=== PATIENT | female | born 1960 | race Caucasian/White ===

== ENCOUNTER 2016-10-07 12:14 | Inpatient (IN) | payer OTHER ==
[2016-10-07 13:11] VITALS: BMI 33.9
--- NOTE | 2016-10-07 15:08 | HP ---
Admission [facility] Chief Complaint: I was at [facility] detox for alcohol dependence and is now here for rehab for further tx. Allergies/Adverse Reactions: Allergies Allergy/AdvReac Type Severity Reaction Status Date / Time No Known Allergies Allergy Verified 10/07/16 14:59 History of Present Illness: Pt is a 56yr old female with a history of alcohol dependence was detoxed at [place] inpatient detox from 10/04-10/07 2016 and is here now for rehab tx. Exam Limitations: No Limitations - Ebola screening Have you traveled outside of the country in the last 21 days: No Have you had contact with anyone from an Ebola affected area: No Have you been sick,other than usual withdrawal symptoms: No Do you have a fever: No - Review of Systems Constitutional: Changes in sleep EENT: reports: No Symptoms Reported Respiratory: reports: No Symptoms reported Cardiac: reports: No Symptoms Reported GI: reports: Poor Fluid Intake : reports: No Symptoms Reported Musculoskeletal: reports: Back Pain Integumentary: reports: Flushing, Sweating Neuro: reports: Tremors Endocrine: reports: No Symptoms Reported Hematology: reports: No Symptoms Reported Psychiatric: reports: Judgement Intact, Mood/Affect Appropiate, Orientated x3, Agitated, Anxious Other Systems: Reviewed and Negative Patient History - Patient Medical History Hx Anemia: No Hx Asthma: Yes Hx Chronic Obstructive Pulmonary Disease (COPD): Yes Hx Cancer: No Hx Cardiac Disorders: No Hx Congestive Heart Failure: No Hx Hypertension: Yes Hx Hypercholesterolemia: No Hx Pacemaker: No HX Cerebrovascular Accident: No Hx Seizures: No Hx Dementia: No Hx Diabetes: No Hx Gastrointestinal Disorders: No Hx Liver Disease: No Hx Genitourinary Disorders: No Hx Sexually Transmitted Disorders: No Hx Renal Disease (ESRD): No Hx Thyroid Disease: No Hx Human Immunodeficiency Virus (HIV): Yes (diagnosed 1997) Hx Hepatitis C: Yes (treatment received <1yr ago) Hx Depression: Yes Hx Suicide Attempt: No (denies) Hx Bipolar Disorder: Yes Hx Schizophrenia: No - Patient Surgical History Past Surgical History: Yes Hx Appendectomy: Yes Hx Cholecystectomy: Yes Other Surgical History: h/o fracture upper left eyebrow and mandible >10yrs ago - PPD History Previous Implant?: Yes Documented Results: Positive w/o proof PPD to be Administered?: No - Reproductive History Patient is a Female of Child Bearing Age (11 -55 yrs old): No - Smoking Cessation Smoking history: Current every day smoker Have you smoked in the past 12 months: Yes Aproximately how many cigarettes per day: 10 Hx Chewing Tobacco Use: No Initiated information on smoking cessation: Yes 'Breaking Loose' booklet given: 10/07/16 - Substance & Tx. History Hx Alcohol Use: Yes Hx Substance Use: Yes Substance Use Type: Alcohol Hx Substance Use Treatment: Yes ([facility] 09/2016) Family Disease History - Family Disease History Family Disease History: CA: Grandparent, Mother (stage 4 lung CA), Other: Father (drug addict) Admission Physical Exam [facility] - Vital Signs Vital Signs: Vital Signs - 24 hr 10/07/16 12:58 Temperature 96 F L Pulse Rate 83 Respiratory 20 Rate Blood Pressure 126/76 - Physical General Appearance: Yes: Appropriately Dressed, Moderate Distress, Tremorous, Irritable, Sweating, Anxious HEENTM: Yes: Hearing grossly Normal, Normal Voice, Rhinorrhea Respiratory: Yes: Lungs Clear, Normal Breath Sounds, No Respiratory Distress Neck: Yes: No masses,lesions,Nodules Breast: Yes: Within Normal Limits Cardiology: Yes: Regular Rhythm, Regular Rate, S1, S2 Abdominal: Yes: Normal Bowel Sounds, Non Tender Genitourinary: Yes: Within Normal Limits Back: Yes: Normal Inspection Musculoskeletal: Yes: full range of Motion, Back pain Extremities: Yes: Normal Capillary Refill, Normal Inspection, Tremors Neurological: Yes: Fully Oriented, Alert, Normal Response Integumentary: Yes: Normal Color, Diaphoresis Lymphatic: Yes: Within Normal Limits - Diagnostic (1) Alcohol dependence in early, early partial, sustained full, or sustained partial remission Current Visit: Yes Status: Chronic (2) Hypertension Current Visit: Yes Status: Chronic Qualifiers: Hypertension type: essential hypertension Qualified Code(s): I10 - Essential (primary) hypertension (3) HIV (human immunodeficiency virus infection) Current Visit: Yes Status: Chronic Comment: pt has her own antiviral medication. (4) Asthma Current Visit: Yes Status: Chronic Qualifiers: Asthma severity: mild persistent Asthma complication type: uncomplicated Qualified Code(s): J45.30 - Mild persistent asthma, uncomplicated (5) Hepatitis C virus Current Visit: Yes Status: Inactive Qualifiers: Viral hepatitis chronicity: unspecified Hepatic coma status: without hepatic coma Qualified Code(s): B19.20 - Unspecified viral hepatitis C without hepatic coma Cleared for Admission [facility] - Detox or Rehab [facility] Level of Care: Medically Managed Claeared for Rehab Admission: Yes [facility] Breath Alcohol Content Breath Alcohol Content: 0 Urine Pregancy Test - Result Urine Test Results: Negative- NO Line Present Urine Drug Screen - Results Drug Screen Negative: No Urine Drug Screen Results: BZO-Benzodiazepines
[2016-10-07] MEDS ORDERED: MAGNESIUM HYDROX 2400MG/30ML ORAL SUSPENSION 30 ML CUP PO PRN (15:26)
[2016-10-07] MEDS ORDERED: MENTHOL/PHENOL 1 EACH UD MM PRN (15:26)
[2016-10-07] MEDS ORDERED: LOPERAMIDE HCL 2 MG CAPSULE PO PRN (15:26)
[2016-10-07] MEDS ORDERED: MAG HYDROX/AL HYDROX/SIMETH 30 ML UNIT-DOSE CUP PO PRN (15:26)
[2016-10-07] MEDS ORDERED: MAGNESIUM CITRATE 300 ML BOTTLE PO PRN (15:26)
[2016-10-07] MEDS ORDERED: diphenhydrAMINE HCL 50 MG CAPSULE PO PRN (15:26)
[2016-10-07] MEDS ORDERED: NICOTINE POLACRILEX 4 MG GUM BUC PRN (15:26)
[2016-10-07] MEDS ORDERED: ACETAMINOPHEN 325 MG TABLET (FP) PO PRN (15:26)
[2016-10-07] MEDS ORDERED: P-EPHED 60MG/TRIPROLIDI 2.5MG TABLET PO PRN (15:26)
[2016-10-07] MEDS ORDERED: guaiFENesin/D-METHORPHAN HB 10 ML UNIT-DOSE CUPS PO PRN (15:26)
[2016-10-07 16:22] LABS: MCH 30.9 pg (25.7-33.7); MCHC 33.5 g/dl (32.0-36.0); MEAN CELL VOLUME 92.2 fl (80-96); MEAN PLT VOLUME 9.3 fl (7.5-11.1); PLATELET COUNT 148 K/MM3 (134-434); WHITE BLOOD COUNT 8.4 K/mm3 (4.0-10.0)
[2016-10-07 17:31] LABS: ALBUMIN 3.9 g/dl (3.4-5.0); GLUCOSE,RANDOM 110 mg/dL (74-106); SGOT/AST 23 U/L (15-37)
[2016-10-07 17:37] LABS: ALK PHOS 84 U/L (45-117); ANION GAP 11 (8-16); BILIRUBIN,TOTAL 0.5 mg/dL (0.2-1.0); CALCIUM 9.5 mg/dL (8.5-10.1); CO2 24 mmol/L (21-32); CREATININE 0.7 mg/dL (0.55-1.02); SGPT/ALT 38 U/L (12-78); TOT PROT 7.3 g/dl (6.4-8.2)
[2016-10-07] MEDS: ALBUTEROL SO4 6.7 GM HFA INHALER IH PRN (18:07)
[2016-10-07] MEDS: hydrOXYzine PAMOATE 50 MG CAPSULE (FP) PO SCH (21:08)
[2016-10-07] MEDS: THIAMINE HCL 100 MG TABLET (FP) PO SCH (21:08)
[2016-10-07] MEDS: QUEtiapine FUMARATE 100 MG TABLET (FP) PO SCH (21:09)
[2016-10-07] MEDS: BUDESONIDE/FORMETEROL FUMARATE 160/4.5 mcg INHALER IH SCH (21:09)
[2016-10-07 21:23] LABS: URINE APPEARANCE SLCLOUDY; URINE BILIRUBIN NEGATIVE (NEGATIVE); URINE BLOOD NEGATIVE (NEGATIVE); URINE COLOR LTYELLOW; URINE GLUCOSE (UA) NEGATIVE (NEGATIVE); URINE KETONE NEGATIVE (NEGATIVE); URINE LEUK ESTERASE NEGATIVE (NEGATIVE); URINE NITRITE NEGATIVE (NEGATIVE); URINE PROTEIN NEGATIVE (NEGATIVE); URINE UROBILINOGEN NEGATIVE mg/dL (0.2-1.0)
[2016-10-07] MEDS: IBUPROFEN 400 MG TABLET (FP) PO PRN (22:00)
[2016-10-07] MEDS ORDERED: LITHIUM CARBONATE 300 MG CAPSULE (FP) PO ONE (22:00)
[2016-10-08] MEDS: LEVOTHYROXINE NA 25 MCG TABLET (FP) PO SCH (06:12)
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
[2016-10-08] MEDS ORDERED: PT OWN MED DRAWER 7, Y5N ONE ×2 (08:46→19:50)
[2016-10-08] MEDS ORDERED: PATIENT'S OWN MEDICATION (NON-FORMULARY) (Atenolol/Chlorthalidone [Atenolol-Chlorthalidone PO SCH (10:00)
[2016-10-08] MEDS: DOCUSATE SODIUM 100 MG CAPSULE (FP) PO SCH (10:13)
[2016-10-08] MEDS: BUDESONIDE/FORMETEROL FUMARATE 160/4.5 mcg INHALER IH SCH ×2 (10:13→21:04)
[2016-10-08] MEDS: PRENATAL VITAMINS W/ FOLIC ACID TABLET (FP) PO SCH (10:13)
[2016-10-08] MEDS: ASPIRIN 81 MG CHEWABLE TABLETS PO SCH (10:13)
[2016-10-08] MEDS: CHLORTHALIDONE 25 MG TABLET PO SCH (10:14)
[2016-10-08] MEDS: risperiDONE 1 MG TABLET (FP) PO SCH (10:14)
[2016-10-08] MEDS: PATIENT'S OWN MEDICATION (NON-FORMULARY) (Emtricitabine/Tenofov Alafenam [Descovy 200-25 M PO SCH (10:14)
[2016-10-08] MEDS: NICOTINE 21 MG/24 HOURS TOPICAL PATCH TD SCH (10:15)
[2016-10-08] MEDS: DOLUTEGRAVIR SODIUM 50 MG TABLET PO SCH (10:15)
[2016-10-08] MEDS: SULFAMETHOXAZOLE/TRIMETHOPRIM 400MG/80MG S.S. TABLET PO SCH (14:32)
[2016-10-08] MEDS: ALBUTEROL SO4 6.7 GM HFA INHALER IH PRN ×2 (14:34→19:20)
[2016-10-08] MEDS: IBUPROFEN 400 MG TABLET (FP) PO PRN (14:43)
[2016-10-08] MEDS ORDERED: CYCLOBENZAPRINE HCL 10 MG TABLET (FP) PO ONE (20:29)
[2016-10-08] MEDS: THIAMINE HCL 100 MG TABLET (FP) PO SCH (21:04)
[2016-10-08] MEDS: LITHIUM CARBONATE 300 MG CAPSULE (FP) PO SCH (21:04)
[2016-10-08] MEDS: QUEtiapine FUMARATE 100 MG TABLET (FP) PO SCH (21:05)
[2016-10-08] MEDS: hydrOXYzine PAMOATE 50 MG CAPSULE (FP) PO SCH (21:05)
[2016-10-09] MEDS: LEVOTHYROXINE NA 25 MCG TABLET (FP) PO SCH (06:21)
[2016-10-09] MEDS: DOLUTEGRAVIR SODIUM 50 MG TABLET PO SCH (10:03)
[2016-10-09] MEDS: BUDESONIDE/FORMETEROL FUMARATE 160/4.5 mcg INHALER IH SCH ×2 (10:03→21:03)
[2016-10-09] MEDS: PRENATAL VITAMINS W/ FOLIC ACID TABLET (FP) PO SCH (10:03)
[2016-10-09] MEDS: PATIENT'S OWN MEDICATION (NON-FORMULARY) (Emtricitabine/Tenofov Alafenam [Descovy 200-25 M PO SCH (10:03)
[2016-10-09] MEDS: DOCUSATE SODIUM 100 MG CAPSULE (FP) PO SCH (10:04)
[2016-10-09] MEDS: LITHIUM CARBONATE 300 MG CAPSULE (FP) PO SCH ×2 (10:04→21:04)
[2016-10-09] MEDS: ASPIRIN 81 MG CHEWABLE TABLETS PO SCH (10:04)
[2016-10-09] MEDS: risperiDONE 1 MG TABLET (FP) PO SCH (10:04)
[2016-10-09] MEDS: SULFAMETHOXAZOLE/TRIMETHOPRIM 400MG/80MG S.S. TABLET PO SCH (10:04)
[2016-10-09] MEDS: NICOTINE 21 MG/24 HOURS TOPICAL PATCH TD SCH (10:05)
[2016-10-09] MEDS: CHLORTHALIDONE 25 MG TABLET PO SCH (10:05)
[2016-10-09] MEDS: CYCLOBENZAPRINE HCL 10 MG TABLET (FP) PO PRN ×2 (10:07→16:05)
[2016-10-09] MEDS: IBUPROFEN 400 MG TABLET (FP) PO PRN (11:23)
[2016-10-09] MEDS: LIDOCAINE 5% TOPICAL PATCH TP SCH (14:37)
[2016-10-09] MEDS: IBUPROFEN 600 MG TABLET (FP) PO PRN (17:39)
--- NOTE | 2016-10-09 20:03 | EKG ---
Test Reason : Blood Pressure : / mmHG Vent. Rate : 081 BPM Atrial Rate : 081 BPM P-R Int : 182 ms QRS Dur : 086 ms QT Int : 380 ms P-R-T Axes : 064 072 066 degrees QTc Int : 441 ms NORMAL SINUS RHYTHM NORMAL ECG NO PREVIOUS ECGS AVAILABLE Confirmed by MENDEZ SCOTT MD ([id number]) on 10/09/2016 8:02:20 PM Referred By: Confirmed By:MENDEZ SCOTT MD
[2016-10-09] MEDS: QUEtiapine FUMARATE 100 MG TABLET (FP) PO SCH (21:03)
[2016-10-09] MEDS: SUVOREXANT 10 MG TABLET PO PRN (21:03)
[2016-10-09] MEDS: hydrOXYzine PAMOATE 50 MG CAPSULE (FP) PO SCH (21:04)
[2016-10-09] MEDS: THIAMINE HCL 100 MG TABLET (FP) PO SCH (21:05)
[2016-10-09] MEDS: LIDOCAINE PATCH REMOVAL MC SCH (21:41)
[2016-10-10] MEDS: LEVOTHYROXINE NA 25 MCG TABLET (FP) PO SCH (06:15)
[2016-10-10] MEDS: risperiDONE 1 MG TABLET (FP) PO SCH (09:39)
[2016-10-10] MEDS: ASPIRIN 81 MG CHEWABLE TABLETS PO SCH (09:39)
[2016-10-10] MEDS: BUDESONIDE/FORMETEROL FUMARATE 160/4.5 mcg INHALER IH SCH ×2 (09:39→22:00)
[2016-10-10] MEDS: PRENATAL VITAMINS W/ FOLIC ACID TABLET (FP) PO SCH (09:39)
[2016-10-10] MEDS: IBUPROFEN 600 MG TABLET (FP) PO PRN (09:39)
[2016-10-10] MEDS: DOCUSATE SODIUM 100 MG CAPSULE (FP) PO SCH (09:40)
[2016-10-10] MEDS: LIDOCAINE 5% TOPICAL PATCH TP SCH (09:40)
[2016-10-10] MEDS: SULFAMETHOXAZOLE/TRIMETHOPRIM 400MG/80MG S.S. TABLET PO SCH (09:40)
[2016-10-10] MEDS: LITHIUM CARBONATE 300 MG CAPSULE (FP) PO SCH ×2 (09:40→21:09)
[2016-10-10] MEDS: PATIENT'S OWN MEDICATION (NON-FORMULARY) (Emtricitabine/Tenofov Alafenam [Descovy 200-25 M PO SCH (09:40)
[2016-10-10] MEDS: DOLUTEGRAVIR SODIUM 50 MG TABLET PO SCH (09:41)
[2016-10-10] MEDS: NICOTINE 21 MG/24 HOURS TOPICAL PATCH TD SCH (09:41)
[2016-10-10] MEDS: hydrOXYzine PAMOATE 50 MG CAPSULE (FP) PO PRN (09:42)
[2016-10-10] MEDS: CYCLOBENZAPRINE HCL 10 MG TABLET (FP) PO PRN ×2 (09:44→18:01)
[2016-10-10] MEDS: CHLORTHALIDONE 25 MG TABLET PO SCH (11:00)
[2016-10-10] MEDS: hydrOXYzine PAMOATE 50 MG CAPSULE (FP) PO SCH (21:09)
[2016-10-10] MEDS: THIAMINE HCL 100 MG TABLET (FP) PO SCH (21:09)
[2016-10-10] MEDS: SUVOREXANT 10 MG TABLET PO PRN (22:00)
[2016-10-10] MEDS: QUEtiapine FUMARATE 100 MG TABLET (FP) PO SCH (22:18)
[2016-10-10] MEDS: LIDOCAINE PATCH REMOVAL MC SCH (23:17)
[2016-10-11] MEDS: LEVOTHYROXINE NA 25 MCG TABLET (FP) PO SCH (06:11)
[2016-10-11] MEDS: CYCLOBENZAPRINE HCL 10 MG TABLET (FP) PO PRN ×4 (06:11→21:35)
[2016-10-11] MEDS: IBUPROFEN 600 MG TABLET (FP) PO PRN (06:11)
[2016-10-11] MEDS: hydrOXYzine PAMOATE 50 MG CAPSULE (FP) PO PRN ×2 (10:07→15:28)
[2016-10-11] MEDS: ASPIRIN 81 MG CHEWABLE TABLETS PO SCH (10:07)
[2016-10-11] MEDS: risperiDONE 1 MG TABLET (FP) PO SCH (10:08)
[2016-10-11] MEDS: DOCUSATE SODIUM 100 MG CAPSULE (FP) PO SCH (10:08)
[2016-10-11] MEDS: PRENATAL VITAMINS W/ FOLIC ACID TABLET (FP) PO SCH (10:08)
[2016-10-11] MEDS: LITHIUM CARBONATE 300 MG CAPSULE (FP) PO SCH ×2 (10:08→20:06)
[2016-10-11] MEDS: PATIENT'S OWN MEDICATION (NON-FORMULARY) (Emtricitabine/Tenofov Alafenam [Descovy 200-25 M PO SCH (10:10)
[2016-10-11] MEDS: DOLUTEGRAVIR SODIUM 50 MG TABLET PO SCH (10:10)
[2016-10-11] MEDS: SULFAMETHOXAZOLE/TRIMETHOPRIM 400MG/80MG S.S. TABLET PO SCH (10:10)
[2016-10-11] MEDS: CHLORTHALIDONE 25 MG TABLET PO SCH (10:11)
[2016-10-11] MEDS: NICOTINE 21 MG/24 HOURS TOPICAL PATCH TD SCH (10:11)
[2016-10-11] MEDS: LIDOCAINE 5% TOPICAL PATCH TP SCH (10:11)
[2016-10-11] MEDS: BUDESONIDE/FORMETEROL FUMARATE 160/4.5 mcg INHALER IH SCH ×2 (10:11→21:33)
[2016-10-11] MEDS: ALBUTEROL SO4 6.7 GM HFA INHALER IH PRN (12:05)
--- NOTE | 2016-10-11 12:46 | PN ---
S Progress Note Note: initial glucose is 110,fasting blood glucose in am,allow patient to have a pitcher of water
[2016-10-11] MEDS: QUEtiapine FUMARATE 100 MG TABLET (FP) PO SCH (20:07)
[2016-10-11] MEDS: SUVOREXANT 10 MG TABLET PO PRN (20:08)
[2016-10-11] MEDS: hydrOXYzine PAMOATE 50 MG CAPSULE (FP) PO SCH (21:33)
[2016-10-11] MEDS: THIAMINE HCL 100 MG TABLET (FP) PO SCH (21:33)
[2016-10-11] MEDS: LIDOCAINE PATCH REMOVAL MC SCH (21:41)
[2016-10-12] MEDS: LEVOTHYROXINE NA 25 MCG TABLET (FP) PO SCH (06:08)
[2016-10-12] MEDS ORDERED: PT OWN MED DRAWER 7, Y5N ONE ×3 (09:00→21:51)
[2016-10-12] MEDS: ASPIRIN 81 MG CHEWABLE TABLETS PO SCH (10:01)
[2016-10-12] MEDS: DOCUSATE SODIUM 100 MG CAPSULE (FP) PO SCH (10:01)
[2016-10-12] MEDS: LITHIUM CARBONATE 300 MG CAPSULE (FP) PO SCH ×2 (10:01→20:13)
[2016-10-12] MEDS: risperiDONE 1 MG TABLET (FP) PO SCH (10:01)
[2016-10-12] MEDS: PRENATAL VITAMINS W/ FOLIC ACID TABLET (FP) PO SCH (10:01)
[2016-10-12] MEDS: LIDOCAINE 5% TOPICAL PATCH TP SCH (10:01)
[2016-10-12] MEDS: CHLORTHALIDONE 25 MG TABLET PO SCH (10:02)
[2016-10-12] MEDS: PATIENT'S OWN MEDICATION (NON-FORMULARY) (Emtricitabine/Tenofov Alafenam [Descovy 200-25 M PO SCH (10:02)
[2016-10-12] MEDS: NICOTINE 21 MG/24 HOURS TOPICAL PATCH TD SCH (10:03)
[2016-10-12] MEDS: SULFAMETHOXAZOLE/TRIMETHOPRIM 400MG/80MG S.S. TABLET PO SCH (10:03)
[2016-10-12] MEDS: DOLUTEGRAVIR SODIUM 50 MG TABLET PO SCH (10:04)
[2016-10-12] MEDS: hydrOXYzine PAMOATE 50 MG CAPSULE (FP) PO PRN ×2 (10:06→14:55)
[2016-10-12] MEDS: CYCLOBENZAPRINE HCL 10 MG TABLET (FP) PO PRN ×2 (10:06→14:55)
[2016-10-12] MEDS: IBUPROFEN 600 MG TABLET (FP) PO PRN ×2 (10:06→16:15)
[2016-10-12] MEDS: BUDESONIDE/FORMETEROL FUMARATE 160/4.5 mcg INHALER IH SCH ×2 (10:07→21:43)
[2016-10-12] MEDS: ALBUTEROL SO4 6.7 GM HFA INHALER IH PRN (18:00)
[2016-10-12] MEDS: QUEtiapine FUMARATE 100 MG TABLET (FP) PO SCH (20:13)
[2016-10-12] MEDS: SUVOREXANT 10 MG TABLET PO PRN (20:13)
[2016-10-12] MEDS: LIDOCAINE PATCH REMOVAL MC SCH (21:42)
[2016-10-12] MEDS: THIAMINE HCL 100 MG TABLET (FP) PO SCH (21:42)
[2016-10-12] MEDS: hydrOXYzine PAMOATE 50 MG CAPSULE (FP) PO SCH (21:42)
[2016-10-13] MEDS: hydrOXYzine PAMOATE 50 MG CAPSULE (FP) PO PRN ×2 (03:17→09:44)
[2016-10-13] MEDS: LEVOTHYROXINE NA 25 MCG TABLET (FP) PO SCH (06:06)
[2016-10-13] MEDS ORDERED: PT OWN MED DRAWER 7, Y5N ONE (08:39)
[2016-10-13] MEDS: risperiDONE 1 MG TABLET (FP) PO SCH (09:42)
[2016-10-13] MEDS: PRENATAL VITAMINS W/ FOLIC ACID TABLET (FP) PO SCH (09:42)
[2016-10-13] MEDS: CHLORTHALIDONE 25 MG TABLET PO SCH (09:43)
[2016-10-13] MEDS: PATIENT'S OWN MEDICATION (NON-FORMULARY) (Emtricitabine/Tenofov Alafenam [Descovy 200-25 M PO SCH (09:43)
[2016-10-13] MEDS: DOLUTEGRAVIR SODIUM 50 MG TABLET PO SCH (09:43)
[2016-10-13] MEDS: SULFAMETHOXAZOLE/TRIMETHOPRIM 400MG/80MG S.S. TABLET PO SCH (09:43)
[2016-10-13] MEDS: IBUPROFEN 600 MG TABLET (FP) PO PRN ×2 (09:45→21:42)
[2016-10-13] MEDS: CYCLOBENZAPRINE HCL 10 MG TABLET (FP) PO PRN ×3 (09:45→23:52)
[2016-10-13] MEDS: LIDOCAINE 5% TOPICAL PATCH TP SCH (09:46)
[2016-10-13] MEDS: NICOTINE 21 MG/24 HOURS TOPICAL PATCH TD SCH (09:46)
[2016-10-13] MEDS: ASPIRIN 81 MG CHEWABLE TABLETS PO SCH (09:50)
[2016-10-13] MEDS: LITHIUM CARBONATE 300 MG CAPSULE (FP) PO SCH ×2 (09:50→20:11)
[2016-10-13] MEDS: DOCUSATE SODIUM 100 MG CAPSULE (FP) PO SCH (09:50)
[2016-10-13] MEDS: BUDESONIDE/FORMETEROL FUMARATE 160/4.5 mcg INHALER IH SCH ×2 (10:18→21:57)
[2016-10-13] MEDS: QUEtiapine FUMARATE 100 MG TABLET (FP) PO SCH (20:12)
[2016-10-13] MEDS: SUVOREXANT 10 MG TABLET PO PRN (20:13)
[2016-10-13] MEDS: LIDOCAINE PATCH REMOVAL MC SCH (21:57)
[2016-10-13] MEDS: THIAMINE HCL 100 MG TABLET (FP) PO SCH (21:58)
[2016-10-13] MEDS: hydrOXYzine PAMOATE 50 MG CAPSULE (FP) PO SCH (21:58)
[2016-10-14] MEDS: hydrOXYzine PAMOATE 50 MG CAPSULE (FP) PO PRN ×2 (03:08→15:00)
[2016-10-14] MEDS: LEVOTHYROXINE NA 25 MCG TABLET (FP) PO SCH (06:08)
[2016-10-14] MEDS ORDERED: PT OWN MED DRAWER 7, Y5N ONE (08:41)
[2016-10-14] MEDS: BUDESONIDE/FORMETEROL FUMARATE 160/4.5 mcg INHALER IH SCH ×2 (10:07→21:22)
[2016-10-14] MEDS: risperiDONE 1 MG TABLET (FP) PO SCH (10:08)
[2016-10-14] MEDS: CYCLOBENZAPRINE HCL 10 MG TABLET (FP) PO PRN ×2 (10:08→21:22)
[2016-10-14] MEDS: DOCUSATE SODIUM 100 MG CAPSULE (FP) PO SCH (10:08)
[2016-10-14] MEDS: LITHIUM CARBONATE 300 MG CAPSULE (FP) PO SCH ×2 (10:08→20:06)
[2016-10-14] MEDS: PRENATAL VITAMINS W/ FOLIC ACID TABLET (FP) PO SCH (10:08)
[2016-10-14] MEDS: LIDOCAINE 5% TOPICAL PATCH TP SCH (10:08)
[2016-10-14] MEDS: NICOTINE 21 MG/24 HOURS TOPICAL PATCH TD SCH (10:08)
[2016-10-14] MEDS: ASPIRIN 81 MG CHEWABLE TABLETS PO SCH (10:08)
[2016-10-14] MEDS: PATIENT'S OWN MEDICATION (NON-FORMULARY) (Emtricitabine/Tenofov Alafenam [Descovy 200-25 M PO SCH (10:09)
[2016-10-14] MEDS: SULFAMETHOXAZOLE/TRIMETHOPRIM 400MG/80MG S.S. TABLET PO SCH (10:09)
[2016-10-14] MEDS: DOLUTEGRAVIR SODIUM 50 MG TABLET PO SCH (10:09)
[2016-10-14] MEDS: CHLORTHALIDONE 25 MG TABLET PO SCH (10:09)
[2016-10-14] MEDS: IBUPROFEN 600 MG TABLET (FP) PO PRN ×2 (10:10→21:21)
[2016-10-14] MEDS: QUEtiapine FUMARATE 100 MG TABLET (FP) PO SCH (20:06)
[2016-10-14] MEDS: hydrOXYzine PAMOATE 50 MG CAPSULE (FP) PO SCH (21:22)
[2016-10-14] MEDS: LIDOCAINE PATCH REMOVAL MC SCH (21:22)
[2016-10-14] MEDS: THIAMINE HCL 100 MG TABLET (FP) PO SCH (21:22)
[2016-10-15] MEDS: hydrOXYzine PAMOATE 50 MG CAPSULE (FP) PO PRN ×4 (05:57→17:28)
[2016-10-15] MEDS: LEVOTHYROXINE NA 25 MCG TABLET (FP) PO SCH (06:01)
[2016-10-15] MEDS: IBUPROFEN 600 MG TABLET (FP) PO PRN ×2 (07:57→16:21)
[2016-10-15] MEDS: CYCLOBENZAPRINE HCL 10 MG TABLET (FP) PO PRN ×2 (07:57→16:21)
[2016-10-15] MEDS: LITHIUM CARBONATE 300 MG CAPSULE (FP) PO SCH ×2 (09:00→19:47)
[2016-10-15] MEDS: ASPIRIN 81 MG CHEWABLE TABLETS PO SCH (09:04)
[2016-10-15] MEDS: DOCUSATE SODIUM 100 MG CAPSULE (FP) PO SCH (09:04)
[2016-10-15] MEDS: risperiDONE 1 MG TABLET (FP) PO SCH (09:04)
[2016-10-15] MEDS: PATIENT'S OWN MEDICATION (NON-FORMULARY) (Emtricitabine/Tenofov Alafenam [Descovy 200-25 M PO SCH (09:05)
[2016-10-15] MEDS: SULFAMETHOXAZOLE/TRIMETHOPRIM 400MG/80MG S.S. TABLET PO SCH (09:05)
[2016-10-15] MEDS: DOLUTEGRAVIR SODIUM 50 MG TABLET PO SCH (09:05)
[2016-10-15] MEDS: CHLORTHALIDONE 25 MG TABLET PO SCH (09:06)
[2016-10-15] MEDS: NICOTINE 21 MG/24 HOURS TOPICAL PATCH TD SCH (09:09)
[2016-10-15] MEDS: PRENATAL VITAMINS W/ FOLIC ACID TABLET (FP) PO SCH (09:10)
[2016-10-15] MEDS: BUDESONIDE/FORMETEROL FUMARATE 160/4.5 mcg INHALER IH SCH (09:10)
[2016-10-15] MEDS: LIDOCAINE 5% TOPICAL PATCH TP SCH (09:10)
--- NOTE | 2016-10-15 12:28 | PN ---
[facility] Progress Note Note: patient responds well to Belsomra, no side-effects will r/n medications.
[2016-10-15] MEDS: QUEtiapine FUMARATE 100 MG TABLET (FP) PO SCH (19:47)
[2016-10-15] MEDS: hydrOXYzine PAMOATE 50 MG CAPSULE (FP) PO SCH (21:03)
[2016-10-15] MEDS: LIDOCAINE PATCH REMOVAL MC SCH (21:04)
[2016-10-15] MEDS: SUVOREXANT 10 MG TABLET PO SCH (21:04)
[2016-10-15] MEDS: THIAMINE HCL 100 MG TABLET (FP) PO SCH (21:04)
[2016-10-16] MEDS: hydrOXYzine PAMOATE 50 MG CAPSULE (FP) PO PRN ×2 (03:40→10:02)
[2016-10-16] MEDS: IBUPROFEN 600 MG TABLET (FP) PO PRN (06:04)
[2016-10-16] MEDS: CYCLOBENZAPRINE HCL 10 MG TABLET (FP) PO PRN ×2 (06:04→21:03)
[2016-10-16] MEDS: LEVOTHYROXINE NA 25 MCG TABLET (FP) PO SCH (07:00)
[2016-10-16] MEDS: risperiDONE 1 MG TABLET (FP) PO SCH (10:00)
[2016-10-16] MEDS: BUDESONIDE/FORMETEROL FUMARATE 160/4.5 mcg INHALER IH SCH ×3 (10:00→21:02)
[2016-10-16] MEDS: DOCUSATE SODIUM 100 MG CAPSULE (FP) PO SCH (10:00)
[2016-10-16] MEDS: SULFAMETHOXAZOLE/TRIMETHOPRIM 400MG/80MG S.S. TABLET PO SCH (10:00)
[2016-10-16] MEDS: DOLUTEGRAVIR SODIUM 50 MG TABLET PO SCH (10:00)
[2016-10-16] MEDS: ASPIRIN 81 MG CHEWABLE TABLETS PO SCH (10:00)
[2016-10-16] MEDS: LITHIUM CARBONATE 300 MG CAPSULE (FP) PO SCH ×2 (10:00→20:06)
[2016-10-16] MEDS: PATIENT'S OWN MEDICATION (NON-FORMULARY) (Emtricitabine/Tenofov Alafenam [Descovy 200-25 M PO SCH (10:00)
[2016-10-16] MEDS: CHLORTHALIDONE 25 MG TABLET PO SCH (10:00)
[2016-10-16] MEDS: PRENATAL VITAMINS W/ FOLIC ACID TABLET (FP) PO SCH (10:00)
[2016-10-16] MEDS: LIDOCAINE 5% TOPICAL PATCH TP SCH (10:01)
[2016-10-16] MEDS: NICOTINE 21 MG/24 HOURS TOPICAL PATCH TD SCH (10:01)
[2016-10-16] MEDS: QUEtiapine FUMARATE 100 MG TABLET (FP) PO SCH (20:06)
[2016-10-16] MEDS: hydrOXYzine PAMOATE 50 MG CAPSULE (FP) PO SCH (21:02)
[2016-10-16] MEDS: THIAMINE HCL 100 MG TABLET (FP) PO SCH (21:02)
[2016-10-16] MEDS: SUVOREXANT 10 MG TABLET PO SCH (21:03)
[2016-10-16] MEDS: LIDOCAINE PATCH REMOVAL MC SCH (21:04)
[2016-10-17] MEDS: hydrOXYzine PAMOATE 50 MG CAPSULE (FP) PO PRN ×2 (06:05→14:32)
[2016-10-17] MEDS: LEVOTHYROXINE NA 25 MCG TABLET (FP) PO SCH (06:05)
[2016-10-17] MEDS: LITHIUM CARBONATE 300 MG CAPSULE (FP) PO SCH ×2 (09:58→21:13)
[2016-10-17] MEDS: ASPIRIN 81 MG CHEWABLE TABLETS PO SCH (09:58)
[2016-10-17] MEDS: PATIENT'S OWN MEDICATION (NON-FORMULARY) (Emtricitabine/Tenofov Alafenam [Descovy 200-25 M PO SCH (10:00)
[2016-10-17] MEDS: CHLORTHALIDONE 25 MG TABLET PO SCH (10:00)
[2016-10-17] MEDS: DOCUSATE SODIUM 100 MG CAPSULE (FP) PO SCH (10:00)
[2016-10-17] MEDS: NICOTINE 21 MG/24 HOURS TOPICAL PATCH TD SCH (10:01)
[2016-10-17] MEDS: PRENATAL VITAMINS W/ FOLIC ACID TABLET (FP) PO SCH (10:01)
[2016-10-17] MEDS: risperiDONE 1 MG TABLET (FP) PO SCH (10:01)
[2016-10-17] MEDS: CYCLOBENZAPRINE HCL 10 MG TABLET (FP) PO PRN ×2 (10:01→14:58)
[2016-10-17] MEDS: LIDOCAINE 5% TOPICAL PATCH TP SCH (10:01)
[2016-10-17] MEDS: IBUPROFEN 600 MG TABLET (FP) PO PRN ×2 (10:02→21:13)
[2016-10-17] MEDS: DOLUTEGRAVIR SODIUM 50 MG TABLET PO SCH (10:02)
[2016-10-17] MEDS: BUDESONIDE/FORMETEROL FUMARATE 160/4.5 mcg INHALER IH SCH ×2 (10:02→21:12)
[2016-10-17] MEDS: SULFAMETHOXAZOLE/TRIMETHOPRIM 400MG/80MG S.S. TABLET PO SCH (10:26)
[2016-10-17 17:15] LABS: URINE APPEARANCE SLCLOUDY; URINE BILIRUBIN NEGATIVE (NEGATIVE); URINE BLOOD NEGATIVE (NEGATIVE); URINE COLOR YELLOW; URINE GLUCOSE (UA) NEGATIVE (NEGATIVE); URINE KETONE NEGATIVE (NEGATIVE); URINE LEUK ESTERASE TRACE (NEGATIVE); URINE NITRITE NEGATIVE (NEGATIVE); URINE PROTEIN NEGATIVE (NEGATIVE); URINE UROBILINOGEN NEGATIVE mg/dL (0.2-1.0)
[2016-10-17 17:19] LABS: URINE BACTERIA RARE /hpf (NONE SEEN); URINE RBC <1 /hpf (0-3); URINE WBC 5 /hpf (3-5)
[2016-10-17] MEDS: QUEtiapine FUMARATE 100 MG TABLET (FP) PO SCH (21:12)
[2016-10-17] MEDS: hydrOXYzine PAMOATE 50 MG CAPSULE (FP) PO SCH (21:12)
[2016-10-17] MEDS: SUVOREXANT 10 MG TABLET PO SCH (21:13)
[2016-10-17] MEDS: THIAMINE HCL 100 MG TABLET (FP) PO SCH (21:15)
[2016-10-17] MEDS: LIDOCAINE PATCH REMOVAL MC SCH (21:16)
[2016-10-18] MEDS: hydrOXYzine PAMOATE 50 MG CAPSULE (FP) PO PRN ×3 (05:52→13:58)
[2016-10-18] MEDS: LEVOTHYROXINE NA 25 MCG TABLET (FP) PO SCH (06:06)
[2016-10-18] MEDS: risperiDONE 1 MG TABLET (FP) PO SCH (09:45)
[2016-10-18] MEDS: IBUPROFEN 600 MG TABLET (FP) PO PRN ×2 (09:45→21:06)
[2016-10-18] MEDS: BUDESONIDE/FORMETEROL FUMARATE 160/4.5 mcg INHALER IH SCH ×2 (09:45→21:04)
[2016-10-18] MEDS: CHLORTHALIDONE 25 MG TABLET PO SCH (09:46)
[2016-10-18] MEDS: ASPIRIN 81 MG CHEWABLE TABLETS PO SCH (09:46)
[2016-10-18] MEDS: SULFAMETHOXAZOLE/TRIMETHOPRIM 400MG/80MG S.S. TABLET PO SCH (09:46)
[2016-10-18] MEDS: DOCUSATE SODIUM 100 MG CAPSULE (FP) PO SCH (09:46)
[2016-10-18] MEDS: CYCLOBENZAPRINE HCL 10 MG TABLET (FP) PO PRN ×2 (09:46→21:06)
[2016-10-18] MEDS: PRENATAL VITAMINS W/ FOLIC ACID TABLET (FP) PO SCH (09:47)
[2016-10-18] MEDS: PATIENT'S OWN MEDICATION (NON-FORMULARY) (Emtricitabine/Tenofov Alafenam [Descovy 200-25 M PO SCH (09:47)
[2016-10-18] MEDS: NICOTINE 21 MG/24 HOURS TOPICAL PATCH TD SCH (09:47)
[2016-10-18] MEDS: LIDOCAINE 5% TOPICAL PATCH TP SCH (09:47)
[2016-10-18] MEDS: DOLUTEGRAVIR SODIUM 50 MG TABLET PO SCH (09:50)
[2016-10-18] MEDS: LITHIUM CARBONATE 300 MG CAPSULE (FP) PO SCH ×2 (10:23→20:00)
--- NOTE | 2016-10-18 13:32 | PN ---
[facility] Progress Note Note: URINARY IN CONTINENCE,UA IS NEGATIVE,PLACE ON DITROPAN 5 MG PO BID
[2016-10-18] MEDS: OXYBUTYNIN CHLORIDE 5 MG TABLET PO SCH ×2 (14:25→21:06)
[2016-10-18] MEDS: QUEtiapine FUMARATE 100 MG TABLET (FP) PO SCH (20:00)
[2016-10-18] MEDS: SUVOREXANT 10 MG TABLET PO SCH (21:05)
[2016-10-18] MEDS: hydrOXYzine PAMOATE 50 MG CAPSULE (FP) PO SCH (21:05)
[2016-10-18] MEDS: LIDOCAINE PATCH REMOVAL MC SCH (21:07)
[2016-10-18] MEDS: THIAMINE HCL 100 MG TABLET (FP) PO SCH (21:08)
[2016-10-19] MEDS: LEVOTHYROXINE NA 25 MCG TABLET (FP) PO SCH (06:38)
[2016-10-19] MEDS: BUDESONIDE/FORMETEROL FUMARATE 160/4.5 mcg INHALER IH SCH ×2 (09:42→21:07)
[2016-10-19] MEDS: LITHIUM CARBONATE 300 MG CAPSULE (FP) PO SCH ×2 (09:42→21:04)
[2016-10-19] MEDS: DOLUTEGRAVIR SODIUM 50 MG TABLET PO SCH (09:42)
[2016-10-19] MEDS: OXYBUTYNIN CHLORIDE 5 MG TABLET PO SCH ×2 (09:42→21:05)
[2016-10-19] MEDS: LIDOCAINE 5% TOPICAL PATCH TP SCH (09:42)
[2016-10-19] MEDS: DOCUSATE SODIUM 100 MG CAPSULE (FP) PO SCH (09:43)
[2016-10-19] MEDS: PRENATAL VITAMINS W/ FOLIC ACID TABLET (FP) PO SCH (09:43)
[2016-10-19] MEDS: ASPIRIN 81 MG CHEWABLE TABLETS PO SCH (09:43)
[2016-10-19] MEDS: SULFAMETHOXAZOLE/TRIMETHOPRIM 400MG/80MG S.S. TABLET PO SCH (09:43)
[2016-10-19] MEDS: risperiDONE 1 MG TABLET (FP) PO SCH (09:43)
[2016-10-19] MEDS: PATIENT'S OWN MEDICATION (NON-FORMULARY) (Emtricitabine/Tenofov Alafenam [Descovy 200-25 M PO SCH (09:43)
[2016-10-19] MEDS: NICOTINE 21 MG/24 HOURS TOPICAL PATCH TD SCH (09:43)
[2016-10-19] MEDS: CHLORTHALIDONE 25 MG TABLET PO SCH (09:43)
[2016-10-19] MEDS: CYCLOBENZAPRINE HCL 10 MG TABLET (FP) PO PRN ×2 (09:44→17:33)
[2016-10-19] MEDS: IBUPROFEN 600 MG TABLET (FP) PO PRN ×2 (09:45→17:33)
[2016-10-19] MEDS: hydrOXYzine PAMOATE 50 MG CAPSULE (FP) PO PRN ×2 (09:45→13:59)
[2016-10-19] MEDS: SUVOREXANT 10 MG TABLET PO SCH (21:04)
[2016-10-19] MEDS: QUEtiapine FUMARATE 100 MG TABLET (FP) PO SCH (21:04)
[2016-10-19] MEDS: hydrOXYzine PAMOATE 50 MG CAPSULE (FP) PO SCH (21:05)
[2016-10-19] MEDS: THIAMINE HCL 100 MG TABLET (FP) PO SCH (21:05)
[2016-10-19] MEDS: LIDOCAINE PATCH REMOVAL MC SCH (23:09)
[2016-10-20] MEDS: LEVOTHYROXINE NA 25 MCG TABLET (FP) PO SCH (06:17)
[2016-10-20] MEDS: hydrOXYzine PAMOATE 50 MG CAPSULE (FP) PO PRN ×4 (06:18→17:20)
[2016-10-20] MEDS: PATIENT'S OWN MEDICATION (NON-FORMULARY) (Emtricitabine/Tenofov Alafenam [Descovy 200-25 M PO SCH (09:42)
[2016-10-20] MEDS: BUDESONIDE/FORMETEROL FUMARATE 160/4.5 mcg INHALER IH SCH ×2 (09:42→21:04)
[2016-10-20] MEDS: NICOTINE 21 MG/24 HOURS TOPICAL PATCH TD SCH (09:43)
[2016-10-20] MEDS: PRENATAL VITAMINS W/ FOLIC ACID TABLET (FP) PO SCH (09:43)
[2016-10-20] MEDS: LITHIUM CARBONATE 300 MG CAPSULE (FP) PO SCH ×2 (09:43→19:52)
[2016-10-20] MEDS: DOLUTEGRAVIR SODIUM 50 MG TABLET PO SCH (09:43)
[2016-10-20] MEDS: DOCUSATE SODIUM 100 MG CAPSULE (FP) PO SCH (09:43)
[2016-10-20] MEDS: SULFAMETHOXAZOLE/TRIMETHOPRIM 400MG/80MG S.S. TABLET PO SCH (09:43)
[2016-10-20] MEDS: ASPIRIN 81 MG CHEWABLE TABLETS PO SCH (09:43)
[2016-10-20] MEDS: risperiDONE 1 MG TABLET (FP) PO SCH (09:43)
[2016-10-20] MEDS: OXYBUTYNIN CHLORIDE 5 MG TABLET PO SCH ×2 (09:43→21:04)
[2016-10-20] MEDS: CHLORTHALIDONE 25 MG TABLET PO SCH (09:43)
[2016-10-20] MEDS: LIDOCAINE 5% TOPICAL PATCH TP SCH (09:44)
[2016-10-20] MEDS: IBUPROFEN 600 MG TABLET (FP) PO PRN ×2 (09:46→21:16)
[2016-10-20] MEDS: CYCLOBENZAPRINE HCL 10 MG TABLET (FP) PO PRN ×2 (09:46→21:16)
[2016-10-20] MEDS: QUEtiapine FUMARATE 100 MG TABLET (FP) PO SCH (19:52)
[2016-10-20] MEDS: hydrOXYzine PAMOATE 50 MG CAPSULE (FP) PO SCH (21:04)
[2016-10-20] MEDS: SUVOREXANT 10 MG TABLET PO SCH (21:04)
[2016-10-20] MEDS: THIAMINE HCL 100 MG TABLET (FP) PO SCH (21:04)
[2016-10-20] MEDS: LIDOCAINE PATCH REMOVAL MC SCH (21:05)
[2016-10-21] MEDS: LEVOTHYROXINE NA 25 MCG TABLET (FP) PO SCH (06:05)
[2016-10-21] MEDS: hydrOXYzine PAMOATE 50 MG CAPSULE (FP) PO PRN (06:06)
[2016-10-21 07:04] VITALS: BP 135/88; PULSE 81; TEMP 98.2
[2016-10-21] MEDS ORDERED: PT OWN MED DRAWER 7, Y5N ONE (08:38)
[2016-10-21] MEDS: ASPIRIN 81 MG CHEWABLE TABLETS PO SCH (09:00)
[2016-10-21] MEDS: DOCUSATE SODIUM 100 MG CAPSULE (FP) PO SCH (09:00)
[2016-10-21] MEDS: PRENATAL VITAMINS W/ FOLIC ACID TABLET (FP) PO SCH (09:00)
[2016-10-21] MEDS: risperiDONE 1 MG TABLET (FP) PO SCH (09:00)
[2016-10-21] MEDS: LITHIUM CARBONATE 300 MG CAPSULE (FP) PO SCH (09:00)
[2016-10-21] MEDS: CYCLOBENZAPRINE HCL 10 MG TABLET (FP) PO PRN (09:01)
[2016-10-21] MEDS: IBUPROFEN 600 MG TABLET (FP) PO PRN (09:01)
[2016-10-21] MEDS: PATIENT'S OWN MEDICATION (NON-FORMULARY) (Emtricitabine/Tenofov Alafenam [Descovy 200-25 M PO SCH (09:01)
[2016-10-21] MEDS: DOLUTEGRAVIR SODIUM 50 MG TABLET PO SCH (09:01)
[2016-10-21] MEDS: SULFAMETHOXAZOLE/TRIMETHOPRIM 400MG/80MG S.S. TABLET PO SCH (09:02)
[2016-10-21] MEDS: CHLORTHALIDONE 25 MG TABLET PO SCH (09:02)
[2016-10-21] MEDS: NICOTINE 21 MG/24 HOURS TOPICAL PATCH TD SCH (09:02)
[2016-10-21] MEDS: OXYBUTYNIN CHLORIDE 5 MG TABLET PO SCH (09:02)
[2016-10-21] MEDS: LIDOCAINE 5% TOPICAL PATCH TP SCH (09:02)
[2016-10-21] MEDS: BUDESONIDE/FORMETEROL FUMARATE 160/4.5 mcg INHALER IH SCH (09:03)
--- NOTE | 2016-10-21 10:00 | PN ---
Psychiatric Progress Note Vital Signs: Vital Signs Period Temp Pulse Resp BP Sys/Newell Pulse Ox Last 24 Hr 98.2 F 81 18-20 135/88 Date of Session: 10/21/16 Chief Complaint:: discharge vist HPI: Patient addressing alcohol,nicotine dependence comorbid Bipolar II disorder. ROS: Asthma/COPD, HIV+, HTN medically managed,treatment for Hep C. Current Medications: Active Medications Generic Name Dose Route Start Last Admin Trade Name Freq PRN Reason Stop Dose Admin Acetaminophen 650 mg 10/07/16 15:26 10/14/16 11:57 Tylenol - PO 650 mg Q4H PRN Administration PAIN Al Hydroxide/Mg Hydroxide 30 ml 10/07/16 15:26 Mylanta Oral Suspension - PO Q6H PRN DYSPEPSIA Albuterol Sulfate 2 puff 10/07/16 15:28 10/12/16 18:00 Ventolin Hfa Inhaler - IH 2 puff Q4H PRN Administration SHORT OF BREATH/WHEEZING Aspirin 81 mg 10/08/16 10:00 10/21/16 09:00 Asa - PO 81 mg DAILY JARVIS Administration Budesonide/Formoterol Fumarate 2 puff 10/07/16 22:00 10/21/16 09:03 Symbicort 160/4.5mcg - IH 2 puff BID JARVIS Administration Chlorthalidone 25 mg 10/08/16 10:00 10/21/16 09:02 Hygroton - PO 25 mg DAILY JARVIS Administration Cyclobenzaprine HCl 10 mg 10/09/16 07:22 10/21/16 09:01 Flexeril - PO 10 mg TID PRN Administration MUSCLE SPASMS Diphenhydramine HCl 50 mg 10/07/16 15:26 10/14/16 21:42 Benadryl - PO 50 mg HSMR1 PRN Administration INSOMNIA Docusate Sodium 200 mg 10/08/16 10:00 10/21/16 09:00 Colace - PO 200 mg DAILY JARVIS Administration Eucalyptus/Menthol/Phenol/Sorbitol 1 each 10/07/16 15:26 Cepastat Lozenge - MM Q4H PRN SORE THROAT Guaifenesin 10 ml 10/07/16 15:26 Robitussin Dm - PO Q6H PRN COUGH Hydroxyzine Pamoate 50 mg 10/07/16 15:26 10/21/16 06:06 Vistaril - PO 50 mg Q4H PRN Administration AGITATION Hydroxyzine Pamoate 100 mg 10/07/16 22:00 10/20/16 21:04 Vistaril - PO 100 mg HS JARVIS Administration Ibuprofen 600 mg 10/09/16 13:04 10/21/16 09:01 Motrin - PO 600 mg Q6H PRN Administration PAIN Levothyroxine Sodium 50 mcg 10/08/16 07:00 10/21/16 06:05 Synthroid - PO 50 mcg DAILY@0700 JARVIS Administration Lidocaine 1 patch 10/09/16 13:00 10/21/16 09:02 Lidoderm Patch - TP 1 patch DAILY JARVIS Administration [place] Carbonate 600 mg 10/11/16 10:00 10/21/16 09:00 Eskalith - PO 600 mg BID@1000,2000 JARVIS Administration Loperamide HCl 4 mg 10/07/16 15:26 Imodium - PO Q6H PRN DIARRHEA Magnesium Citrate 300 ml 10/07/16 15:26 Citroma - PO Q48H PRN CONSTIPATION Magnesium Hydroxide 30 ml 10/07/16 15:26 Milk Of Magnesia - PO DAILY PRN CONSTIPATION Miscellaneous 1 each 10/09/16 22:00 10/20/16 21:05 Lidoderm Patch Removal MC 1 each DAILY@2200 JARVIS Administration Nicotine 21 mg 10/08/16 10:00 10/21/16 09:02 Nicoderm Patch - TD Not Given DAILY JARVIS Nicotine Polacrilex 4 mg 10/07/16 15:26 Nicorette Gum - BUC Q2H PRN NICOTINE REPLACEMENT RX Non-Formulary Medication 1 each 10/08/16 10:00 10/21/16 09:01 Emtricitabine/Tenofov Alafenam [Descovy 200-25 Mg Tablet] PO 1 each DAILY JARVIS Administration Oxybutynin Chloride 5 mg 10/18/16 14:00 10/21/16 09:02 Ditropan - PO 5 mg BID JARVIS Administration Multivit/Folic Acid/Iron 1 tab 10/08/16 10:00 10/21/16 09:00 Vitamins (Sjr) - PO 1 tab DAILY JARVIS Administration Pseudoephedrine/Triprolidine 1 combo 10/07/16 15:26 Actifed - PO TID PRN NASAL CONGESTION Quetiapine Fumarate 100 mg 10/11/16 20:00 10/20/16 19:52 Seroquel - PO 100 mg HS@2000 JARVIS Administration Risperidone 1 mg 10/08/16 10:00 10/21/16 09:00 Risperdal - PO 1 mg DAILY JARVIS Administration Thiamine HCl 100 mg 10/07/16 22:00 10/20/16 21:04 Vitamin B1 - PO 100 mg HS JARVIS Administration Trimethoprim/Sulfamethoxazole 1 each 10/08/16 10:00 10/21/16 09:02 Bactrim Single Strength - PO 1 each DAILY JARVIS Administration Current Side Effect: No Lab tests ordered: No Lab tests reviewed: Yes Provider note:: Patient has completed today her treatment and met identified goals, will continue to address her issues at [facility] outpatient treatment program. She gained insights into her addiction, unedrstands the negative impact drining on her mahor life areas including physical and mental healst. Medications(lithium Risprdal) well tolerated, blood lithium level 0.6 () WNL, she will f/u at [facility], scripts provided, patient reports no side-effects, she is stable for discharge today. Total face to face time:: 15 Mental Status Exam - Mental Status Exam Alert and Oriented to: Time, Place, Person Cognitive Function: Good Patient Appearance: Well Groomed Mood: Hopeful Affect: Appropriate, Mood Congruent Patient Behavior: Appropriate, Cooperative Speech Pattern: Clear, Appropriate Voice Loudness: Normal Thought Process: Intact, Goal Oriented Thought Disorder: Not Present Hallucinations: Denies Suicidal Ideation: Denies Homicidal Ideation: Denies Insight/Judgement: Fair Sleep: Fair Appetite: Fair Muscle strength/Tone: Normal Gait/Station: Normal Psychiatric Treatment Plan - Problem List (1) Alcohol dependence Current Visit: Yes (2) Bipolar II disorder Current Visit: Yes (3) Nicotine dependence Current Visit: Yes (4) Asthma Current Visit: Yes Qualifiers: Asthma severity: mild persistent Asthma complication type: uncomplicated Qualified Code(s): J45.30 - Mild persistent asthma, uncomplicated (5) HIV (human immunodeficiency virus infection) Current Visit: Yes Comment: pt has her own antiviral medication. (6) Hypertension Current Visit: Yes Qualifiers: Hypertension type: essential hypertension Qualified Code(s): I10 - Essential (primary) hypertension
== END 2016-10-21 10:00 | disposition home or self-care (01) | DRG 772 ==
LOC: YASAS 12:14 → Y3W 15:19
PROVIDERS: ADMIT Psychiatry & Neurology Psychiatry; ATTEND Psychiatry & Neurology Psychiatry
PROC: HZ42ZZZ Group Counseling for Substance Abuse Treatment, Cognitive-Behavioral (ICD-10-PCS; principal; 2016-10-07)
DX: F10.20 Alcohol dependence, uncomplicated (principal); F17.210 Nicotine dependence, cigarettes, uncomplicated; F31.81 Bipolar II disorder; J45.30 Mild persistent asthma, uncomplicated; J44.9 Chronic obstructive pulmonary disease, unspecified; Z21 Asymptomatic human immunodeficiency virus [HIV] infection status; I10 Essential (primary) hypertension; R32 Unspecified urinary incontinence; B19.20 Unspecified viral hepatitis C without hepatic coma; Z59.0 Homelessness
CPT/HCPCS: 36415; 71020-TC; 80053; 80178; 81003; 81015; 82947; 85027; 86593; 93005; 93010; J2794

== ENCOUNTER 2024-01-01 17:38 | Inpatient (IN) | payer OTHER ==
[2024-01-01 20:43] VITALS: BMI 29.8
[2024-01-01] MEDS ORDERED: BENZONATATE 200 MG CAPSULE PO PRN (21:09)
[2024-01-01] MEDS ORDERED: guaiFENesin 600 MG TABLET.ER (FP) PO PRN (21:09)
[2024-01-01] MEDS ORDERED: MAGNESIUM HYDROX 2400MG/30ML ORAL SUSPENSION 30 ML CUP PO PRN (21:09)
[2024-01-01] MEDS ORDERED: IBUPROFEN 400 MG TABLET (FP) PO PRN (21:09)
[2024-01-01] MEDS ORDERED: POLYETHYLENE GLYCOL (HEALTHYLAX) 3350 17 GM PACKET PO PRN (21:09)
[2024-01-01] MEDS ORDERED: ACETAMINOPHEN 325 MG TABLET (FP) PO PRN (21:09)
[2024-01-01] MEDS ORDERED: NICOTINE POLACRILEX 2 MG LOZENGE BC PRN (21:09)
[2024-01-01] MEDS ORDERED: DICYCLOMINE HCL 10 MG CAPSULE PO PRN (21:09)
[2024-01-01] MEDS ORDERED: ONDANSETRON *ODT* 4 MG TABLET SL PRN (21:09)
[2024-01-01] MEDS ORDERED: NALOXONE (NYS OPIOID OVERDOSE PROGRAM) 4 MG/0.1 ML SPRAY NS PRN (21:09)
[2024-01-01] MEDS ORDERED: P-EPHED 60MG/TRIPROLIDI 2.5MG TABLET PO PRN (21:09)
[2024-01-01] MEDS ORDERED: MAG HYDROX/AL HYDROX/SIMETH 30 ML UNIT-DOSE CUP PO PRN (21:09)
[2024-01-01] MEDS ORDERED: LOPERAMIDE HCL 2 MG CAPSULE PO PRN (21:09)
[2024-01-01] MEDS ORDERED: BENZOCAINE/MENTHOL (CHLORASEPTIC ) LOZENGE MM PRN (21:09)
[2024-01-01] MEDS ORDERED: ALBUTEROL SO4 2.5/IPRATROPIUM 0.5 INH SOL 3 ML VIAL.NEB. NEB PRN (21:14)
[2024-01-01] MEDS: METHOCARBAMOL 500 MG TABLET PO PRN (22:59)
[2024-01-01] MEDS: THIAMINE 100 MG TABLET PO SCH (22:59)
[2024-01-01] MEDS: MELATONIN 5 MG TABLETS PO SCH (22:59)
[2024-01-01] MEDS: ALBUTEROL SO4 HFA INHALER IH PRN (23:00)
[2024-01-01] MEDS: hydrOXYzine PAMOATE 25 MG CAPSULE (FP) PO PRN (23:00)
[2024-01-02] MEDS: LEVOTHYROXINE NA 25 MCG TABLET (FP) PO SCH (06:05)
[2024-01-02] MEDS ORDERED: chlordiazePOXIDE HCL 25 MG CAPSULE PO PRN (09:57)
[2024-01-02] MEDS: PRENATAL VITAMINS W/ FOLIC ACID TABLET (FP) PO SCH (09:58)
[2024-01-02] MEDS ORDERED: FLUTICASONE FUROATE IH SCH (10:00)
[2024-01-02] MEDS: ASPIRIN 81 MG CHEWABLE TABLETS PO SCH (10:00)
[2024-01-02] MEDS ORDERED: PATIENT'S OWN MEDICATION (NON-FORMULARY) (Atenolol/Chlorthalidone [Atenolol-Chlorthalidone PO SCH (10:00)
[2024-01-02] MEDS: BICTEGRAV/EMTRICIT/TENOFOV (BIKTARVY) 50-200-25 MG TABLET PO SCH (10:00)
[2024-01-02] MEDS: CHLORTHALIDONE 25 MG TABLET PO SCH (11:18)
[2024-01-02] MEDS: SULFAMETHOXAZOLE/TRIMETHOPRIM 400MG/80MG S.S. TABLET PO SCH (11:19)
[2024-01-02] MEDS: ATENOLOL 50 MG TABLET (FP) PO SCH (11:19)
[2024-01-02] MEDS: chlordiazePOXIDE HCL 25 MG CAPSULE PO SCH (11:20)
[2024-01-02] MEDS: GABAPENTIN 300 MG CAPSULE PO SCH ×2 (11:20→21:49)
[2024-01-02] MEDS: BUDESONIDE/FORMETEROL FUMARATE 80/4.5 mcg INHALER IH SCH (11:23)
[2024-01-02 11:52] LABS: CHLORIDE 110 mmol/L (98-107); POTASSIUM 3.7 mmol/L (3.5-5.1); SODIUM 143 mmol/L (136-145)
[2024-01-02 11:55] LABS: ANION GAP 6 mmol/L (4-13); BLOOD UREA NITROGEN 11.5 mg/dL (7-18); CALCIUM 9.2 mg/dL (8.5-10.1); CO2 27 mmol/L (21-32); GLUCOSE,RANDOM 121 mg/dL (74-106); HEMATOCRIT 38.9 % (32.4-45.2); MCH 29.5 pg (25.7-33.7); MCHC 33.5 g/dl (32.0-36.0); MEAN CELL VOLUME 88.1 fl (80-96); MEAN PLT VOLUME 9.8 fl (7.5-11.1); PLATELET COUNT 128 10^3/uL (134-434); RBC 4.42 M/mm3 (3.60-5.2); RDW 14.9 % (11.6-15.6)
[2024-01-02 11:58] LABS: CREATININE 0.6 mg/dL (0.55-1.3); SGOT/AST 11 U/L (15-37); SGPT/ALT 20 U/L (13-61)
[2024-01-02 12:00] LABS: BILIRUBIN,TOTAL 0.2 mg/dL (0.2-1)
[2024-01-02 12:01] LABS: ALK PHOS 89 U/L (45-117)
[2024-01-02 12:08] LABS: WHITE BLOOD COUNT 1.5 K/mm3 (4.0-10.0)
[2024-01-02] MEDS: DOCUSATE SODIUM 100 MG CAPSULE (FP) PO SCH (21:49)
[2024-01-03] MEDS: BISMUTH SUBSALICYLATE 524 MG/30 ML PO PRN (22:20)
[2024-01-04] MEDS: chlordiazePOXIDE HCL 25 MG CAPSULE PO SCH (05:57)
[2024-01-04] MEDS: NICOTINE POLACRILEX 2 MG GUM BUC PRN (07:04)
[2024-01-04 08:07] LABS: HEMATOCRIT 42.8 % (32.4-45.2); HEMOGLOBIN 13.8 GM/dL (10.7-15.3); MCH 29.2 pg (25.7-33.7); MCHC 32.3 g/dl (32.0-36.0); MEAN CELL VOLUME 90.3 fl (80-96); MEAN PLT VOLUME 10.4 fl (7.5-11.1); PLATELET COUNT 138 10^3/uL (134-434); RBC 4.74 M/mm3 (3.60-5.2); RDW 14.9 % (11.6-15.6); WHITE BLOOD COUNT 2.7 K/mm3 (4.0-10.0)
[2024-01-04 09:26] LABS: ANISOCYTOSIS 0; HELMET CELLS 0; HOWELL-JOLLY BODIES 0; MACROCYTOSIS 0; OVALOCYTE 0; ROULEAU 0; SICKELED CELLS 0; TARGET CELLS 0; TEAR DROP CELLS 0; TOXIC GRANULATION 0
[2024-01-04] MEDS: CLOTRIMAZOLE 1% CREAM TP SCH (11:25)
[2024-01-05] MEDS ORDERED: chlordiazePOXIDE HCL 10 MG CAPSULE PO PRN
[2024-01-05] MEDS: chlordiazePOXIDE HCL 10 MG CAPSULE PO SCH (05:45)
[2024-01-05] MEDS: IBUPROFEN 600 MG TABLET (FP) PO PRN (11:31)
[2024-01-05] MEDS: SELENIUM SULFIDE 2.25% 180 ML SHAMPOO TP SCH (14:19)
[2024-01-06] MEDS: chlordiazePOXIDE HCL 10 MG CAPSULE PO SCH (05:32)
[2024-01-06] MEDS: NALOXONE (NYS OPIOID OVERDOSE PROGRAM) 4 MG/0.1 ML SPRAY NS SCH (10:50)
[2024-01-06] MEDS: SUVOREXANT 10 MG TABLET PO PRN (21:51)
[2024-01-07] MEDS: chlordiazePOXIDE HCL 10 MG CAPSULE PO ONE (05:50)
[2024-01-07 09:04] VITALS: BP 118/66; PULSE 76; RESP 18; TEMP 97.6
== END 2024-01-07 10:30 | disposition home or self-care (01) | DRG 774 ==
LOC: YASAS 17:38 → Y6N 21:16
PROVIDERS: ADMIT Allergy & Immunology; ATTEND Surgery
PROC: HZ2ZZZZ Detoxification Services for Substance Abuse Treatment (ICD-10-PCS; principal; 2024-01-01)
DX: F10.230 Alcohol dependence with withdrawal, uncomplicated (principal); F14.20 Cocaine dependence, uncomplicated; F17.210 Nicotine dependence, cigarettes, uncomplicated; F19.282 Other psychoactive substance dependence with psychoactive substance-induced sleep disorder; F19.24 Other psychoactive substance dependence with psychoactive substance-induced mood disorder; Z21 Asymptomatic human immunodeficiency virus [HIV] infection status; D70.9 Neutropenia, unspecified; E03.9 Hypothyroidism, unspecified; G62.9 Polyneuropathy, unspecified; I10 Essential (primary) hypertension; J45.20 Mild intermittent asthma, uncomplicated; Z79.899 Other long term (current) drug therapy
CPT/HCPCS: 36415; 71046-TC-FY; 80053; 80305; 80307; 85025; 85027; 86780; 93005; 93010

== ENCOUNTER 2024-05-10 09:29 | Inpatient (IN) | payer OTHER ==
[2024-05-10 09:52] VITALS: BMI 33.5
[2024-05-10] MEDS ORDERED: MAG HYDROX/AL HYDROX/SIMETH 30 ML UNIT-DOSE CUP PO PRN (10:06)
[2024-05-10] MEDS ORDERED: IBUPROFEN 400 MG TABLET (FP) PO PRN (10:06)
[2024-05-10] MEDS ORDERED: DICYCLOMINE HCL 10 MG CAPSULE PO PRN (10:06)
[2024-05-10] MEDS ORDERED: MAGNESIUM HYDROX 2400MG/30ML ORAL SUSPENSION 30 ML CUP PO PRN (10:06)
[2024-05-10] MEDS ORDERED: NALOXONE (NARCAN) HCL 4 MG/0.1 ML SPRAY NS PRN (10:06)
[2024-05-10] MEDS ORDERED: guaiFENesin 600 MG TABLET.ER (FP) PO PRN (10:06)
[2024-05-10] MEDS ORDERED: BENZOCAINE/MENTHOL (CHLORASEPTIC ) LOZENGE MM PRN (10:06)
[2024-05-10] MEDS ORDERED: POLYETHYLENE GLYCOL (HEALTHYLAX) 3350 17 GM PACKET PO PRN (10:06)
[2024-05-10] MEDS ORDERED: BENZONATATE 200 MG CAPSULE PO PRN (10:06)
[2024-05-10] MEDS ORDERED: chlordiazePOXIDE HCL 25 MG CAPSULE ONE (11:39)
[2024-05-10] MEDS ORDERED: PRENATAL VITAMINS W/ FOLIC ACID TABLET (FP) PO ONE (11:40)
[2024-05-10] MEDS: chlordiazePOXIDE HCL 25 MG CAPSULE PO SCH (11:45)
[2024-05-10] MEDS ORDERED: GABAPENTIN 100 MG CAPSULE ONE (11:47)
[2024-05-10] MEDS: GABAPENTIN 300 MG CAPSULE PO SCH ×2 (11:49→22:07)
[2024-05-10] MEDS: BICTEGRAV/EMTRICIT/TENOFOV (BIKTARVY) 50-200-25 MG TABLET PO SCH (12:51)
[2024-05-10] MEDS: SULFAMETHOXAZOLE/TRIMETHOPRIM 800MG/160MG D.S. TABLET PO SCH (12:51)
[2024-05-10] MEDS: IBUPROFEN 600 MG TABLET (FP) PO PRN (14:08)
[2024-05-10] MEDS: BUDESONIDE/FORMETEROL FUMARATE 160/4.5 mcg INHALER IH SCH (14:16)
[2024-05-10] MEDS: CHLORTHALIDONE 25 MG TABLET PO SCH (14:16)
[2024-05-10] MEDS: ATENOLOL 50 MG TABLET (FP) PO SCH (14:17)
[2024-05-10] MEDS: METHOCARBAMOL 500 MG TABLET PO PRN (17:22)
[2024-05-10] MEDS: ALBUTEROL SO4 HFA INHALER IH PRN (17:27)
[2024-05-10] MEDS: MELATONIN 5 MG TABLETS PO SCH (22:05)
[2024-05-10] MEDS: MIRTAZAPINE 15 MG TABLET (FP) PO SCH (22:06)
[2024-05-10] MEDS: THIAMINE 100 MG TABLET PO SCH (22:06)
[2024-05-11] MEDS: NICOTINE POLACRILEX 4 MG GUM BUC PRN (05:34)
[2024-05-11] MEDS: LEVOTHYROXINE NA 25 MCG TABLET (FP) PO SCH (06:33)
[2024-05-11] MEDS: ASPIRIN 81 MG CHEWABLE TABLETS PO SCH (10:11)
[2024-05-11] MEDS: PRENATAL VITAMINS W/ FOLIC ACID TABLET (FP) PO SCH (10:12)
[2024-05-11] MEDS: ACETAMINOPHEN 325 MG TABLET (FP) PO PRN (10:14)
[2024-05-11] MEDS: LIDOCAINE 5% TOPICAL PATCH TP SCH (11:03)
[2024-05-11 11:35] LABS: POTASSIUM 4.3 mmol/L (3.5-5.1)
[2024-05-11 11:38] LABS: ALBUMIN 3.2 g/dl (3.4-5.0); BLOOD UREA NITROGEN 17.8 mg/dL (7-18); CALCIUM 9.1 mg/dL (8.5-10.1)
[2024-05-11 11:41] LABS: CREATININE 0.9 mg/dL (0.55-1.3)
[2024-05-11 11:42] LABS: BILIRUBIN,TOTAL 0.2 mg/dL (0.2-1); TOT PROT 6.3 g/dl (6.4-8.2)
[2024-05-11 12:14] LABS: HEMATOCRIT 41.8 % (32.4-45.2); MCH 29.6 pg (25.7-33.7); MCHC 33.4 g/dl (32.0-36.0); MEAN CELL VOLUME 88.6 fl (80-96); MEAN PLT VOLUME 10.1 fl (7.5-11.1); PLATELET COUNT 221 10^3/uL (134-434); RBC 4.72 M/mm3 (3.60-5.2); RDW 14.7 % (11.6-15.6); WHITE BLOOD COUNT 5.5 K/mm3 (4.0-10.0)
[2024-05-11] MEDS: chlordiazePOXIDE HCL 25 MG CAPSULE PO PRN (14:50)
[2024-05-11] MEDS: LIDOCAINE PATCH REMOVAL MC SCH (22:13)
[2024-05-11] MEDS: LOPERAMIDE HCL 2 MG CAPSULE PO PRN (22:16)
[2024-05-12] MEDS: chlordiazePOXIDE HCL 25 MG CAPSULE PO SCH (06:00)
[2024-05-12] MEDS: CLOTRIMAZOLE 1% CREAM TP SCH (10:30)
[2024-05-12] MEDS: NALTREXONE HCL 50 MG TABLET PO ONE (11:37)
[2024-05-12] MEDS: ARTIFICIAL TEARS OPHTHALMIC DROPS OU SCH (13:34)
[2024-05-13] MEDS: chlordiazePOXIDE HCL 10 MG CAPSULE PO SCH (05:46)
[2024-05-13] MEDS: ONDANSETRON *ODT* 4 MG TABLET SL PRN (06:29)
[2024-05-13] MEDS: NALTREXONE HCL 50 MG TABLET PO SCH (10:24)
[2024-05-13] MEDS: chlordiazePOXIDE HCL 10 MG CAPSULE PO PRN (14:00)
[2024-05-13] MEDS: BISMUTH SUBSALICYLATE 524 MG/30 ML PO PRN (20:19)
[2024-05-13] MEDS: hydrOXYzine PAMOATE 25 MG CAPSULE (FP) PO PRN (21:06)
[2024-05-14] MEDS: chlordiazePOXIDE HCL 10 MG CAPSULE PO SCH (06:00)
[2024-05-14] MEDS ORDERED: chlordiazePOXIDE HCL 25 MG CAPSULE PO PRN (10:34)
[2024-05-14] MEDS: chlordiazePOXIDE HCL 10 MG CAPSULE PO PRN (11:01)
[2024-05-15] MEDS: chlordiazePOXIDE HCL 10 MG CAPSULE PO ONE (05:43)
[2024-05-15 21:17] VITALS: RESP 16
[2024-05-16 09:03] VITALS: BP 135/69; PULSE 75; TEMP 97.6
== END 2024-05-16 13:10 | disposition other institution (70) | DRG 774 ==
LOC: YASAS 09:29 → Y6N 11:46
PROVIDERS: ADMIT Allergy & Immunology; ATTEND Allergy & Immunology
PROC: HZ2ZZZZ Detoxification Services for Substance Abuse Treatment (ICD-10-PCS; principal; 2024-05-10)
DX: F10.230 Alcohol dependence with withdrawal, uncomplicated (principal); F14.20 Cocaine dependence, uncomplicated; F17.210 Nicotine dependence, cigarettes, uncomplicated; F31.9 Bipolar disorder, unspecified; F19.282 Other psychoactive substance dependence with psychoactive substance-induced sleep disorder; F19.24 Other psychoactive substance dependence with psychoactive substance-induced mood disorder; F41.8 Other specified anxiety disorders; Z21 Asymptomatic human immunodeficiency virus [HIV] infection status; I10 Essential (primary) hypertension; H04.129 Dry eye syndrome of unspecified lacrimal gland; J43.1 Panlobular emphysema; J45.20 Mild intermittent asthma, uncomplicated; E03.9 Hypothyroidism, unspecified; R73.03 Prediabetes; R26.89 Other abnormalities of gait and mobility; Z99.89 Dependence on other enabling machines and devices; Z86.19 Personal history of other infectious and parasitic diseases; Z62.810 Personal history of physical and sexual abuse in childhood; Z63.8 Other specified problems related to primary support group
CPT/HCPCS: 36415; 80053; 80305; 80307; 83036; 84443; 85027; 86780; 87811; Q0162

== ENCOUNTER 2024-05-16 13:11 | Inpatient (IN) | payer OTHER ==
[~2024-05-16 13:11] MED LIST: BENZONATATE 200 MG CAPSULE PO PRN; IBUPROFEN 400 MG TABLET (FP) PO PRN; MAGNESIUM HYDROX 2400MG/30ML ORAL SUSPENSION 30 ML CUP PO PRN; NICOTINE POLACRILEX 4 MG GUM BUC PRN; NICOTINE POLACRILEX 4 MG LOZENGE BC PRN; POLYETHYLENE GLYCOL (HEALTHYLAX) 3350 17 GM PACKET PO PRN
[2024-05-16] MEDS: MAG HYDROX/AL HYDROX/SIMETH 30 ML UNIT-DOSE CUP PO PRN (14:06)
[2024-05-16] MEDS: IBUPROFEN 600 MG TABLET (FP) PO PRN (16:56)
[2024-05-16] MEDS: guaiFENesin 600 MG TABLET.ER (FP) PO PRN (16:56)
[2024-05-16] MEDS: hydrOXYzine PAMOATE 25 MG CAPSULE (FP) PO PRN (16:58)
[2024-05-16] MEDS: ARTIFICIAL TEARS OPHTHALMIC DROPS OU SCH (21:24)
[2024-05-16] MEDS: LIDOCAINE PATCH REMOVAL MC SCH (21:25)
[2024-05-16] MEDS: MIRTAZAPINE 15 MG TABLET (FP) PO SCH (21:29)
[2024-05-16] MEDS: GABAPENTIN 300 MG CAPSULE PO SCH (21:29)
[2024-05-16] MEDS: THIAMINE 100 MG TABLET PO SCH (21:29)
[2024-05-16] MEDS: BUDESONIDE/FORMETEROL FUMARATE 160/4.5 mcg INHALER IH SCH (21:29)
[2024-05-16] MEDS: MELATONIN 5 MG TABLETS PO SCH (21:29)
[2024-05-16] MEDS ORDERED: LIDOCAINE PATCH REMOVAL MC SCH (22:00)
[2024-05-17] MEDS: BICTEGRAV/EMTRICIT/TENOFOV (BIKTARVY) 50-200-25 MG TABLET PO SCH (07:20)
[2024-05-17] MEDS: ALBUTEROL SO4 HFA INHALER IH PRN (08:57)
[2024-05-17] MEDS: SULFAMETHOXAZOLE/TRIMETHOPRIM 800MG/160MG D.S. TABLET PO SCH (09:17)
[2024-05-17] MEDS: NALTREXONE HCL 50 MG TABLET PO SCH (09:17)
[2024-05-17] MEDS: CHLORTHALIDONE 25 MG TABLET PO SCH (09:17)
[2024-05-17] MEDS: ASPIRIN 81 MG CHEWABLE TABLETS PO SCH (09:17)
[2024-05-17] MEDS: ATENOLOL 50 MG TABLET (FP) PO SCH (09:18)
[2024-05-17] MEDS: PRENATAL VITAMINS W/ FOLIC ACID TABLET (FP) PO SCH (09:19)
[2024-05-17] MEDS: LIDOCAINE 5% TOPICAL PATCH TP SCH (09:22)
[2024-05-17] MEDS ORDERED: LIDOCAINE 5% TOPICAL PATCH TP SCH (10:00)
[2024-05-17] MEDS ORDERED: GABAPENTIN 300 MG CAPSULE PO SCH (10:00)
[2024-05-17] MEDS: METHOCARBAMOL 500 MG TABLET PO PRN (15:33)
[2024-05-18] MEDS: GABAPENTIN 300 MG CAPSULE PO SCH (09:11)
[2024-05-18] MEDS: CLOTRIMAZOLE 1% CREAM TP SCH (09:12)
[2024-05-18] MEDS: hydrOXYzine PAMOATE 50 MG CAPSULE (FP) PO PRN (15:39)
[2024-05-18] MEDS: ACETAMINOPHEN 325 MG TABLET (FP) PO PRN (15:39)
[2024-05-18] MEDS: MIRTAZAPINE 30 MG TABLET PO SCH (21:42)
[2024-05-19] MEDS: PRAZOSIN HCL 1 MG CAPSULE PO SCH (21:27)
[2024-05-19] MEDS: MIRTAZAPINE 15 MG TABLET (FP) PO SCH (21:27)
[2024-05-20] MEDS: BICTEGRAV/EMTRICIT/TENOFOV (BIKTARVY) 50-200-25 MG TABLET PO SCH (06:09)
[2024-05-20] MEDS: METHYL SALICYLATE/MENTHOL 30 GM TUBE TP PRN (15:46)
[2024-05-20] MEDS: GABAPENTIN 300 MG CAPSULE PO SCH (21:03)
[2024-05-20] MEDS: IBUPROFEN 600 MG TABLET (FP) PO PRN (22:15)
[2024-05-20] MEDS: ACETAMINOPHEN 325 MG TABLET (FP) PO PRN (22:16)
[2024-05-22] MEDS: SUVOREXANT 10 MG TABLET PO PRN (21:34)
[2024-05-24] MEDS: BENZOCAINE/MENTHOL (CHLORASEPTIC ) LOZENGE MM PRN (06:33)
[2024-05-24] MEDS ORDERED: IBUPROFEN 400 MG TABLET (FP) PO PRN (16:15)
[2024-05-24] MEDS: NYSTATIN 500,000 UNITS/5 ML SUSPENSION PO SCH (20:40)
[2024-05-24] MEDS: ACETAMINOPHEN 325 MG TABLET (FP) PO PRN (21:27)
[2024-05-24] MEDS: SIMETHICONE 80 MG TAB.CHEW (FP) PO PRN (21:27)
[2024-05-25] MEDS ORDERED: OXYMETAZOLINE 0.05% NASAL SOLUTION 15 ML BOTTLE NS PRN (16:31)
[2024-05-25] MEDS ORDERED: BENZONATATE 200 MG CAPSULE PO PRN (16:31)
[2024-05-25] MEDS: ALBUTEROL SO4 2.5/IPRATROPIUM 0.5 INH SOL 3 ML VIAL.NEB. NEB PRN (18:04)
[2024-05-25] MEDS: guaiFENesin 600 MG TABLET.ER (FP) PO PRN (23:09)
[2024-05-26] MEDS: ARIPiprazole 5 MG TABLET PO SCH (09:30)
[2024-05-27] MEDS: LOPERAMIDE HCL 2 MG CAPSULE PO PRN (19:24)
[2024-05-27] MEDS: ALBUTEROL SO4 2.5/IPRATROPIUM 0.5 INH SOL 3 ML VIAL.NEB. NEB ONE (19:44)
[2024-05-27] MEDS: predniSONE 20 MG TABLET (UD) PO SCH (20:47)
[2024-05-27] MEDS: SUVOREXANT 10 MG TABLET PO PRN (21:31)
[2024-05-27] MEDS: ALBUTEROL SO4 2.5/IPRATROPIUM 0.5 INH SOL 3 ML VIAL.NEB. NEB PRN (23:39)
[2024-05-30 16:23] VITALS: RESP 18
[2024-05-30] MEDS: SUVOREXANT 10 MG TABLET PO PRN (21:34)
[2024-05-31 08:13] VITALS: TEMP 97.1
[2024-05-31 12:46] VITALS: BP 139/72; PULSE 75
== END 2024-05-31 09:46 | disposition home or self-care (01) | DRG 772 ==
LOC: YASAS 13:11 → Y3NR 13:12 → Y5N 05-18 12:03
PROVIDERS: ADMIT Neuromusculoskeletal Medicine & OMM; ATTEND Psychiatry & Neurology Pain Medicine
PROC: HZ42ZZZ Group Counseling for Substance Abuse Treatment, Cognitive-Behavioral (ICD-10-PCS; principal; 2024-05-16)
DX: F10.20 Alcohol dependence, uncomplicated (principal); F14.20 Cocaine dependence, uncomplicated; F17.210 Nicotine dependence, cigarettes, uncomplicated; F19.282 Other psychoactive substance dependence with psychoactive substance-induced sleep disorder; F19.24 Other psychoactive substance dependence with psychoactive substance-induced mood disorder; F41.8 Other specified anxiety disorders; F32.A Depression, unspecified; Z21 Asymptomatic human immunodeficiency virus [HIV] infection status; E03.9 Hypothyroidism, unspecified; I10 Essential (primary) hypertension; J44.9 Chronic obstructive pulmonary disease, unspecified; J22 Unspecified acute lower respiratory infection; B97.4 Respiratory syncytial virus as the cause of diseases classified elsewhere; R73.03 Prediabetes; Z87.01 Personal history of pneumonia (recurrent); Z87.09 Personal history of other diseases of the respiratory system; R26.89 Other abnormalities of gait and mobility; Z99.89 Dependence on other enabling machines and devices
CPT/HCPCS: 0241U-QW; 71046-TC-FY; 94640